=== PATIENT | female | born 1965 | race Caucasian/White ===

== ENCOUNTER 2023-12-16 10:12 | Emergency (ER) | payer SELFPAY ==
[2023-12-16] VITALS (7 sets, daily range): BP systolic 153–185; BP diastolic 81–113; BMI 39.8
--- NOTE | 2023-12-16 11:21 | PHANOTE ---
med rec note- patient sent to [facility] from her md office. patient explain she stopped taking her medication about a month ago but has the medication bottle at home. she did not say why she stopped them.
medication filled on 06/10/23
hydrochlorothiazide 25mg daily
Benicar 20mg daily
Synthroid 88mcg daily
[2023-12-16 11:33] LABS: % Basophils 0.5 % (0-2); % Eosinophils 1.2 % (0-6); % Immature Granulocytes 0.2 % (0-0.5); % Monocytes 10.5 % (1.7-9.3); % Neutrophils 66.6 % (42.2-75.2); Absolute Eosinophils 0.1 10^3/uL (0-0.7); Absolute Lymphocytes 1.3 10^3/uL (1.2-3.4); Absolute Monocytes 0.6 10^3/uL (0.1-0.6); Hematocrit 38.8 % (37.0-47.0); Mean Corp Hgb Conc. 33.5 g/dL (33.0-37.0); Mean Corpuscular Hgb 28.6 pg (27.0-31.0); Mean Corpuscular Volume 85.3 fL (81.0-99.0); Mean Platelet Volume 9.8 fL (7.4-10.4); Nucleated Red Blood Cells % 0 %; Platelet Count 180 10^3/uL (130-400); Red Blood Cell Count 4.55 10^6/uL (4.20-5.40); Red Cell Dist. Width 13.2 % (11.5-14.5)
[2023-12-16 11:42] LABS: INR 0.89; PT 12.1 Sec (11.4-14.6)
[2023-12-16 11:44] LABS: ALT (SGPT) 29 U/L (0-35); AST (SGOT) 28 U/L (14-36); Albumin 4.2 g/dl (3.5-5.0); Alkaline Phosphatase 59 U/L (38-126); Blood Urea Nitrogen 23 mg/dl (7-17); Calcium 9.2 mg/dl (8.4-10.2); Carbon Dioxide 34 mmol/L (22-30); Chloride 101 mmol/L (98-107); Estimated Creatinine Clearance 101 ml/min; Glucose 78 mg/dl (70-99); Potassium 4.6 mmol/L (3.5-5.1); Sodium 144 mmol/L (135-145); Total Bilirubin 0.4 mg/dl (0.2-1.3); Total Protein 7.2 g/dl (6.3-8.2); eGFR > 60.00
--- NOTE | 2023-12-16 11:55 | ED.GENMED ---
History of Present Illness
General
Chief Complaint: Swelling
Time Seen by Provider: 12/16/23 10:43
History of Present Illness
History of Present Illness:
58-year-old female with history of narcolepsy presenting to the emergency department for right lower extremity swelling and pain. Patient went to her primary care doctor today for the pain and the swelling was sent to the emergency department for
further evaluation, as well as additional concerns. Patient notes that her leg has been like this for the past year, denies known injury to the leg. Denies numbness or tingling. Denies known history of blood clots and negative ultrasound imaging
a year ago. Reports that the swelling and the redness has been getting worse. Primary care doctor also concerned because patient reports for the past year and a half she has been having narcoleptic episodes, has had multiple falls from this. Her
doctor took her license away. Patient arrives with her roommate who explained to the episodes are frequent, concerned that patient cannot be independent. Patient otherwise denies chest pain, difficulty breathing, fever
Phy Exam
Physical Exam
Physical Exam:
General: no clinical signs of dehydration, nontoxic and in no acute distress
HEENT: protecting airway
Neck: appears supple
CV: Normal heart rate, regular rhythm
Resp: No accessory muscle use, no increased work of breathing, lungs clear to auscultation bilaterally
Abd: Soft and non-distended, no tenderness to palpation, normal bowel sounds
Extremities: Significant swelling to the right lower extremity comparison to the left lower extremity, however swelling is present bilaterally. Generalized erythema to the right lower extremity. Distal sensation and pulses intact
Neuro: alert, no focal neurologic deficit
: deferred
Rectal: deferred
Psych: Normal affect
Skin: Intact
Scores
Heart Failure Risk
Heart Failure Risk Score: Not Applicable
Course
Orders/Labs/Results
Orders:
Orders
12/16/23 11:09
Case Management Consult ONCE
Case Management Consult: VN/Home Care
Urinalysis Reflex To Culture Urgent
12/16/23 11:10
Venous Doppler Lwr Ext Bilat [US Periph Venous LOWER Ext Kaiden] Urgent
Comment:
Reason For Exam: swelling b/l, with redness to RLE
12/16/23 11:22
Complete Blood Count/With Diff Urgent
Comprehensive Metabolic Panel Urgent
PTT Urgent
Prothrombin Time Urgent
12/16/23 12:33
CT Head W/o Iv Contrast Urgent
Comment:
Reason For Exam: suspected narcolepsy, no prior workup
12/16/23 14:47
Doxycycline [Vibramycin] 100 mg PO NOW STA
Abnormal Lab Results
12/16/23
11:22
Monocytes % 10.5 H %
(1.7-9.3)
Carbon Dioxide 34 H mmol/L
(22-30)
BUN 23 H mg/dl
(7-17)
12/16/23 11:22
12/16/23 11:22
Vital Signs
Initial and Last Documented VS:
Initial Vital Signs
Temp Pulse Resp BP Pulse Ox
98.7 F 93 18 185/113 98
12/16/23 10:29 12/16/23 10:29 12/16/23 10:29 12/16/23 10:29 12/16/23 10:29
Last Documented Vital Signs
Temp Pulse Resp BP Pulse Ox
98.7 F 95 16 162/89 97
12/16/23 10:29 12/16/23 14:15 12/16/23 14:15 12/16/23 14:11 12/16/23 14:15
MDM/Problems Addressed
MDM/Problems Addressed:
58-year-old female with history of narcolepsy presenting for right lower extremity swelling for the past year and concern of worsening narcolepsy with failure to care for self. Vital signs are significant for high blood pressure which has improved
without intervention.
On exam, patient resting comfortably, no acute distress or discomfort. Patient with large right lower extremity, erythematous and warm. Differential considerations include DVT versus cellulitis. No report of direct trauma, no deformity was lower
suspicion for fracture or malalignment. No present neurovascular compromise. Will obtain laboratory analysis and ultrasound imaging. Regarding her issues with narcolepsy, remade is at bedside who is applying to be her POA. Will discuss with
social work
14:30 - Patient's labs are unremarkable. Ultrasound without evidence of DVT. At this time suspected cellulitis, will start an antibiotic. Did obtain CT brain given history of sleep attacks with no formal neurologic evaluation. CT brain without
acute intracranial abnormality. In discussion with social work, provided resources to help patient get insurance, otherwise no present reason for admission. Patient has help at home with her roommates, license has been revoked. In discussion with
friend at bedside, notes that patient is noncompliant with doctor visits and her CPAP. Suspect noncompliance to CPAP could be worsening narcolepsy and sleep attacks during the day. Communicated importance of CPAP. Strict return precautions
communicated and patient verbalized understanding
*Critical Care Note
Total Time (30-74mins, 75-104mins- exclusive of procedures): Not Applicable
ED Attending Note
-
Portions of this chart may have been created with voice recognition software.� Occasional wrong word or��sound alike� substitutions may have occurred due to the inherent limitations of voice recognition software.
Discharge Plan
Departure
Patient Disposition: Home (Routine Discharge)
Date of Disposition: 12/16/23
Time of Disposition: 14:38
Patient with high blood pressure during this ER visit?: Yes
Condition: Good
Discharge Problem:
Localized swelling of right lower extremity, Cellulitis of leg, right, Sleep attack
Instructions: Narcolepsy, Dependent Edema (DC), Cellulitis (Skin Infection), Adult ED
Prescriptions:
New
doxycycline hyclate 100 mg capsule
100 mg PO BID 10 Days Qty: 20 0RF
No Action
garlic 1,000 mg Capsule
1,000 mg PO DAILY
cyanocobalamin (vitamin B-12) 500 mcg Tablet
1,000 mcg PO DAILY
cholecalciferol (vitamin D3) [Vitamin D3] 25 mcg (1,000 unit) Tablet
25 mcg PO DAILY
Referrals:
Chauncey Barrientos MD [Active] - (narcolepsy)
Eliana Monroe CRNP [Family Provider] -
Activity Restrictions/Additional Instructions:
You were seen in the emergency department for swelling of your right lower extremity and concern for increased sleep attacks
You were found to have normal laboratory work and ultrasound imaging of your leg, negative for a blood clot. You are thought to have cellulitis which is an infection of your skin. Please take your antibiotic as directed and follow-up closely with
your primary care doctor. You can also wear compression socks and keep your legs elevated at nighttime. You will also need to follow-up with a neurologist regarding your sleep attacks, you had a negative CT of your brain. Please use your CPAP
every night. Do not drive a vehicle until seeing the neurologist.
Return to the emergency department for any worsening of your symptoms, or any development of chest pain, difficulty breathing, abdominal pain with persistent vomiting and inability to tolerate food or liquid by mouth (concern for dehydration),
weakness, headache or confusion, fever greater than 100.4, or any additional symptoms that are concerning to you.
Thank you for choosing [facility].
Interventions
Interventions:
*Risk Screen - Suicide Last Done: 12/16/23 10:29
*General Assessment Last Done: 12/16/23 10:29
*Neglect/Abuse Screening Last Done: 12/16/23 10:29
ED- Fall Risk Assessment Last Done: 12/16/23 10:42
*ED COVID-19 Vaccine History Last Done: 12/16/23 10:42
ED- Cardiac Assessment Last Done: 12/16/23 10:42
ED- Pulmonary Assessment Last Done: 12/16/23 10:42
ED-Skin Assessment Last Done: 12/16/23 10:42
Discharge Date and Time
Print Language: SRI LANKAN
--- NOTE | 2023-12-16 13:15 | CM ---
CM following re: discharge planning.
CM consulted to arrange VN services to the pt at home.
Reviewed pt's chart, met with pt. Pt's room mate Simone at bedside.
Pt is a 58 year old female, arrived to ED with primary concerns of right lower extremity swelling for the past year and concern of worsening narcolepsy with failure to care for self.
Pt reports she lives with room mate Simone and his girlfriend in a 2SH, 2 steps to enter. Pt reports she was working prior to ED visit and will not working anymore due to medical condition. Pt reports she has no family and she trusts Simone and his
girlfriend. Pt reports she has no medical insurance, owns the house and has a mortgage. Pt's room mate Simone asked to help with obtaining health insurance and community based services. pt's room mate stated that pt applied for food stamps and has
been receiving in the past 2 years. An application for Medical assistance provided to the pt and her room mate and room mate stated he will complete it and will go to [facility] assistance office to expedite of getting health insurance.
Information and phone number for [employer] [place] provided to apply for Medicaid and community based services.
Per pt will need antibiotics and pt [facility].
PCP: Eliana Monroe
Pharmacy: [facility] [place]
D/C plan: home with room mates support. Room mate Simone to transport.
[2023-12-16] MEDS: VIBRAMYCIN 100 MG PO (14:58)
== END 2023-12-16 15:52 | disposition home or self-care (01) ==
LOC: EMR 10:12
PROVIDERS: EMERGENCY PHYSICIAN Student in an Organized Health Care Education/Training Program; FAMILY PHYSICIAN Nurse Practitioner Adult Health
DX: L03.115 Cellulitis of right lower limb (principal); M79.604 Pain in right leg; R22.41 Localized swelling, mass and lump, right lower limb; G47.419 Narcolepsy without cataplexy; R03.0 Elevated blood-pressure reading, without diagnosis of hypertension; Z91.199 Patient's noncompliance with other medical treatment and regimen due to unspecified reason; R29.6 Repeated falls; Z88.0 Allergy status to penicillin
CPT/HCPCS: 99284; 70450; 80053; 85025; 85610; 85730; 93970